=== PATIENT | male | born 1950 | race Caucasian/White ===

== ENCOUNTER 2016-10-02 16:04 | Emergency (ER) | payer MEDICARE, OTHER ==
[~2016-10-02] VITALS: Ht 177.8 cm; Wt 105.0 kg
[2016-10-02 16:09] VITALS: BP 205/105
[2016-10-02] MEDS ORDERED: SODIUM CHLORIDE FLUSH 10ML SYR IVF ONE (16:30)
[2016-10-02] MEDS ORDERED: ASPIRIN 81 MG TABLET CHEW PO ONE (16:30)
[2016-10-02 16:50] LABS: BLOOD UREA NITROGEN 79 mg/dL (7-18)
[2016-10-02 16:55] LABS: IS PT STATUS REG ER OR PRE ER? YES
== END 2016-10-02 17:29 | disposition home or self-care (01) ==
LOC: ED 17:23
DX: S06.5X0A Traumatic subdural hemorrhage without loss of consciousness, initial encounter (principal); I10 Essential (primary) hypertension; W10.9XXA Fall (on) (from) unspecified stairs and steps, initial encounter; Y93.89 Activity, other specified; Y92.009 Unspecified place in unspecified non-institutional (private) residence as the place of occurrence of the external cause; Y99.9 Unspecified external cause status
CPT/HCPCS: 36415; 71010; 80048; 81003; 82040; 84484; 85025; 93005; 99285

== ENCOUNTER → 2017-04-04 | Outpatient (CLI) | payer MEDICARE, OTHER | END | disposition home or self-care (01) | LOC: CFH 15:14 → EDSTATUS 15:30 | PROVIDERS: ATTEND Internal Medicine Nephrology | DX: N13.30 Unspecified hydronephrosis (principal); N32.3 Diverticulum of bladder; N18.9 Chronic kidney disease, unspecified | CPT/HCPCS: 76770 ==

== ENCOUNTER 2017-09-17 10:09 | Emergency (ER) | payer MEDICARE, OTHER ==
[~2017-09-17] VITALS: Ht 177.8 cm; Wt 96.0 kg
[2017-09-17 12:34] LABS: ALBUMIN 3.6 g/dL (3.4-5.0); ANION GAP 12 mmol/L (5-15); CALCIUM 9.1 mg/dL (8.5-10.1); CHLORIDE 105 mmol/L (98-107); CREATININE 5.38 mg/dL (0.7-1.3)
[2017-09-17] MEDS ORDERED: LIDOCAINE 2%, 10ML ONE ×2 (14:05→14:06)
[2017-09-17] MEDS ORDERED: MIDAZOLAM 1 MG/ML, 5ML ONE (14:25)
[2017-09-17] MEDS ORDERED: FENTANYL PF 100 MCG/2ML ONE (14:25)
[2017-09-17 17:49] VITALS: BP 114/60
== END 2017-09-17 18:03 | disposition home or self-care (01) ==
LOC: ED 11:40
DX: I12.9 Hypertensive chronic kidney disease with stage 1 through stage 4 chronic kidney disease, or unspecified chronic kidney disease (principal); N18.3 Chronic kidney disease, stage 3 (moderate); Z85.46 Personal history of malignant neoplasm of prostate
CPT/HCPCS: 36415; 51702; 75989; 80048; 82040; 99156; 99157; 99285; C1725; C1769; J2250; J3010; J3490

== ENCOUNTER 2018-01-05 09:45 | Day surgery (SDC) | payer BC, MEDICARE, OTHER ==
[~2018-01-05] VITALS: Ht 177.8 cm; Wt 101.7 kg
[2018-01-05] MEDS ORDERED: HEPARIN 1,000 UNITS/ML, 10ML ONE (10:22)
[2018-01-05] MEDS ORDERED: BUPIVACAINE/PF 0.5% ONE (10:22)
[2018-01-05] MEDS ORDERED: PROTAMINE SULFATE 10 MG/ML, 5ML ONE (10:22)
[2018-01-05] MEDS ORDERED: LACTATED RINGERS 1,000 ML IV SCH (10:59)
[2018-01-05] MEDS ORDERED: LEUP45SY IM (11:07)
[2018-01-05] MEDS ORDERED: TIMO5DRO28 EACHEYE (11:07)
[2018-01-05] MEDS ORDERED: AMLO10TA2 PO (11:07)
[2018-01-05] MEDS ORDERED: LOSA25TA5 PO (11:07)
[2018-01-05 11:20] VITALS: BP 143/82
[2018-01-05] MEDS ORDERED: FENTANYL PF 100 MCG/2ML ONE (12:41)
[2018-01-05] MEDS ORDERED: EPHEDRINE 50 MG/ML, 1ML IM PRN (13:00)
[2018-01-05] MEDS ORDERED: DIPHENHYDRAMINE 50 MG/ML, 1ML IVPush PRN (13:00)
[2018-01-05] MEDS ORDERED: OXYcodone 5 MG/5 ML ORAL.SOL UDC PO PRN (13:00)
[2018-01-05] MEDS ORDERED: EPHEDRINE 50 MG/ML, 1ML IVPush PRN (13:00)
[2018-01-05] MEDS ORDERED: ACETAMINOPHEN 325 MG TABLET PO PRN (13:00)
[2018-01-05] MEDS ORDERED: ONDANSETRON ODT 8 MG PO PRN (13:00)
[2018-01-05] MEDS ORDERED: FENTANYL PF 100 MCG/2ML IV PRN (13:00)
[2018-01-05] MEDS ORDERED: PROMETHAZINE 25 MG SUPP PR PRN (13:00)
[2018-01-05] MEDS ORDERED: LABETALOL 5MG/ML, 20ML IV PRN (13:00)
[2018-01-05] MEDS ORDERED: PROMETHAZINE 25 MG/ML, 1ML IV PRN (13:00)
[2018-01-05] MEDS ORDERED: PROMETHAZINE 12.5 MG SUPP PR PRN (13:00)
[2018-01-05] MEDS ORDERED: MIDAZOLAM 1 MG/ML, 2ML IV PRN (13:00)
[2018-01-05] MEDS ORDERED: MORPHINE SULFATE 4 MG/ML, 1ML IVPush PRN (13:00)
[2018-01-05] MEDS ORDERED: PROPOFOL 10 MG/ML, 20ML ONE ×2 (13:20)
[2018-01-05] MEDS ORDERED: DEXAMETHASONE 4 MG/ML, 1ML ONE (13:20)
[2018-01-05] MEDS ORDERED: CEFAZOLIN 1,000 MG ONE ×2 (13:20)
[2018-01-05] MEDS ORDERED: ONDANSETRON 2MG/ML, 2ML ONE (13:20)
[2018-01-05] MEDS ORDERED: OXYcodone 5 MG/5 ML ORAL.SOL UDC ONE (14:14)
== END 2018-01-05 17:15 | disposition home or self-care (01) ==
LOC: OUT 09:45
PROVIDERS: ATTEND Surgery Vascular Surgery
DX: I12.0 Hypertensive chronic kidney disease with stage 5 chronic kidney disease or end stage renal disease (principal); N18.6 End stage renal disease; Z85.46 Personal history of malignant neoplasm of prostate; Z98.890 Other specified postprocedural states; Z79.899 Other long term (current) drug therapy
CPT/HCPCS: 36415; 36821; 80047; 93005; J0690; J1100; J1644; J2405; J2704; J2720; J3010; J7120; J3490

== ENCOUNTER 2018-03-16 07:12 | Day surgery (SDC) | payer BC, MEDICARE, OTHER ==
[~2018-03-16] VITALS: Ht 177.8 cm; Wt 107.0 kg
[~2018-03-16 07:12] MED LIST: AMLO10TA6 PO; BUPIVACAINE/PF 0.5% ONE; HEPARIN 1,000 UNITS/ML, 10ML ONE; HEPARIN 5,000 UNITS/ML, 1ML ONE; LEUP45SY IM; LOSA25TA6 PO; THROMBIN 20,000 UNIT VIAL TP ONE; THROMBIN 5,000 UNIT VIAL TP ONE; TIMO5DRO28 EACHEYE
[2018-03-16] MEDS ORDERED: SODIUM CHLORIDE 0.9% 1,000 ML IV SCH (07:40)
[2018-03-16] MEDS ORDERED: MIDAZOLAM 1 MG/ML, 2ML ONE (07:50)
[2018-03-16] MEDS ORDERED: PROPOFOL 10 MG/ML, 20ML ONE (07:50)
[2018-03-16] MEDS ORDERED: FENTANYL PF 250 MCG/5ML ONE (07:50)
[2018-03-16] MEDS ORDERED: GLYCOPYRROLATE 0.4 MG/2 ML, 2ML ONE (07:51)
[2018-03-16] MEDS ORDERED: NEOSTIGMINE 1 MG/ML, 10ML ONE (07:51)
[2018-03-16] MEDS ORDERED: ROCURONIUM 10MG/ML,5ML ONE (07:51)
[2018-03-16] MEDS ORDERED: CEFAZOLIN 1,000 MG ONE ×2 (07:52)
[2018-03-16] MEDS ORDERED: SODIUM CHLORIDE 0.9% PF 10ML ONE (07:52)
[2018-03-16 08:04] VITALS: BP 144/77
[2018-03-16] MEDS ORDERED: FURO20TA3 PO (08:11)
[2018-03-16] MEDS ORDERED: FENTANYL PF 100 MCG/2ML IV PRN (09:30)
[2018-03-16] MEDS ORDERED: LABETALOL 5MG/ML, 20ML IV PRN (09:30)
[2018-03-16] MEDS ORDERED: PROMETHAZINE 25 MG/ML, 1ML IV PRN (09:30)
[2018-03-16] MEDS ORDERED: PROMETHAZINE 25 MG/ML, 1ML IM PRN ×2 (09:30)
[2018-03-16] MEDS ORDERED: ONDANSETRON ODT 8 MG PO PRN (09:30)
[2018-03-16] MEDS ORDERED: HYDROmorphone 1 MG/ML, 1ML IV PRN (09:30)
[2018-03-16] MEDS ORDERED: hydrALAzine 20 MG/ML, 1ML IV PRN (09:30)
[2018-03-16] MEDS ORDERED: ONDANSETRON 2MG/ML, 2ML IV PRN (09:30)
[2018-03-16] MEDS ORDERED: BUPIVACAINE/PF-EPI 0.5% 1:200K ONE (10:23)
[2018-03-16] MEDS ORDERED: OXYcodone 5 MG/5 ML ORAL.SOL UDC ONE ×2 (11:51→12:17)
[2018-03-16] MEDS: OXYcodone 5 MG/5 ML ORAL.SOL UDC PO PRN ×2 (11:52→12:18)
[2018-03-16] MEDS ORDERED: hydrALAzine 20 MG/ML, 1ML ONE (12:06)
[2018-03-16] MEDS ORDERED: FENTANYL PF 100 MCG/2ML ONE (12:13)
== END 2018-03-16 14:10 | disposition home or self-care (01) ==
LOC: OUT 07:12
PROVIDERS: ATTEND Surgery Vascular Surgery
DX: I12.0 Hypertensive chronic kidney disease with stage 5 chronic kidney disease or end stage renal disease (principal); N18.6 End stage renal disease; Z98.890 Other specified postprocedural states; Z85.46 Personal history of malignant neoplasm of prostate
CPT/HCPCS: 36415; 36821; 49421; 80047; C1750; J0360; J0690; J1644; J2250; J2704; J2710; J3010; J3490

== ENCOUNTER 2018-10-09 16:03 | Emergency (ER) | payer BC, MEDICARE, OTHER ==
[~2018-10-09] VITALS: Ht 177.8 cm; Wt 116.3 kg
[~2018-10-09 16:03] MED LIST changes: -AMLO10TA6 PO; +AMLO10TA8 PO; -BUPIVACAINE/PF 0.5% ONE; +FURO20TA3 PO; -HEPARIN 1,000 UNITS/ML, 10ML ONE; -HEPARIN 5,000 UNITS/ML, 1ML ONE; +LOSA25TA25 PO; -LOSA25TA6 PO; -THROMBIN 20,000 UNIT VIAL TP ONE; -THROMBIN 5,000 UNIT VIAL TP ONE
--- NOTE | 2018-10-09 16:20 | NUR ---
patient arrives to the er with a ring stuck on his right ring finger. the finger distally is pink/swollen. he has pain to right ring finger. we are attempting to remove ring. patient has some pain to right ring finger.
--- NOTE | 2018-10-09 16:40 | NUR ---
ring successfully cut off from finger. patient feels relief. awaiting tests and xray
[2018-10-09 16:44] LABS: BASOPHILS # (AUTO) 0.04 x10^3/uL (0-0.1); BASOPHILS % (AUTO) 1 % (0-1); EOSINOPHILS # (AUTO) 0.32 x10^3/uL (0-0.4); EOSINOPHILS % (AUTO) 6 % (1-7); LYMPHOCYTES # (AUTO) 0.72 x10^3/uL (1-3.4); LYMPHOCYTES % (AUTO) 13 % (22-44); MD NO; MEAN CORPUSCULAR HEMOGLOBIN 29.8 pg (27.5-34.5); MEAN CORPUSCULAR HGB CONC 32.9 g/dL (33.2-36.2); MEAN CORPUSCULAR VOLUME 90.8 fL (81-97); MONOCYTES # (AUTO) 0.52 x10^3/uL (0.2-0.8); MONOCYTES % (AUTO) 9 % (2-9); NEUTROPHILS # (AUTO) 3.99 x10^3/uL (1.8-6.8); NEUTROPHILS % (AUTO) 72 % (42-75); PLATELET COUNT 232 x10^3/uL (130-400); RED BLOOD COUNT 3.46 x10^6/uL (4.38-5.82); RED CELL DISTRIBUTION WIDTH 13.9 % (9.4-14.8)
[2018-10-09 17:24] LABS: HCT (SEDRATE) 31.4 % (39.2-51.8)
--- NOTE | 2018-10-09 18:09 | NUR ---
patient circulation in finger improved, cap refill 3 seconds. redness going away, states pain improving.
[2018-10-09] MEDS ORDERED: BACITRACIN ZINC OINT 500U/GM, 0.9 GM ONE (18:12)
--- NOTE | 2018-10-09 18:21 | NUR ---
put bacitracin on wound and instructions regarding follow up care and wound care given. patient shows understanding.
[2018-10-09 18:22] VITALS: BP 143/78
== END 2018-10-09 18:27 | disposition home or self-care (01) ==
LOC: ED 16:44
DX: S60.414A Abrasion of right ring finger, initial encounter (principal); I10 Essential (primary) hypertension; Z85.46 Personal history of malignant neoplasm of prostate; X58.XXXA Exposure to other specified factors, initial encounter; Y93.89 Activity, other specified; Y92.009 Unspecified place in unspecified non-institutional (private) residence as the place of occurrence of the external cause; Y99.8 Other external cause status
CPT/HCPCS: 36415; 85025; 85651; 86140; 99284

== ENCOUNTER 2018-10-11 10:37 | Emergency (ER) | payer BC, MEDICARE, OTHER ==
[2018-10-11 10:39] VITALS: BP 155/80
== END 2018-10-11 11:08 | disposition home or self-care (01) ==
LOC: ED 10:50
DX: L03.011 Cellulitis of right finger (principal); Z85.46 Personal history of malignant neoplasm of prostate; I10 Essential (primary) hypertension
CPT/HCPCS: 99281

== ENCOUNTER → 2020-05-18 | Outpatient (CLI) | payer MEDICARE, OTHER ==
[~2020-05-18] MED LIST changes: +AMLO-211 PO; -AMLO10TA8 PO
== END | disposition home or self-care (01) ==
LOC: STAR 13:55
PROVIDERS: ATTEND Anesthesiology
DX: Z20.828 Contact with and (suspected) exposure to other viral communicable diseases (principal)
CPT/HCPCS: 87635

== ENCOUNTER 2020-05-22 10:27 | Day surgery (SDC) | payer MEDICARE, OTHER ==
[~2020-05-22] VITALS: Ht 177.8 cm; Wt 130.4 kg
[2020-05-22] MEDS ORDERED: CHLORHEXIDINE 15 ML UDC ONE (11:11)
[2020-05-22] MEDS ORDERED: PLEASE ENTER HEIGHT AND WEIGHT MC SCH (11:30)
[2020-05-22] MEDS ORDERED: CHLORHEXIDINE 15 ML UDC MM ONE (11:30)
[2020-05-22] MEDS ORDERED: LACTATED RINGERS 1,000 ML IV SCH (11:30)
[2020-05-22 11:39] VITALS: BP 160/82
[2020-05-22 11:43] LABS: BASOPHILS % (AUTO) 1 % (0-1); EOSINOPHILS % (AUTO) 6 % (1-7); LYMPHOCYTES % (AUTO) 12 % (22-44); MEAN CORPUSCULAR HEMOGLOBIN 31.4 pg (27.5-34.5); MEAN CORPUSCULAR HGB CONC 33.8 g/dL (33.2-36.2); MEAN PLATELET VOLUME 8.2 fL (7.4-10.4); MONOCYTES % (AUTO) 7 % (2-9); NEUTROPHILS % (AUTO) 74 % (42-75); PLATELET COUNT 213 x10^3/uL (130-400); RED BLOOD COUNT 4.59 x10^6/uL (4.38-5.82); RED CELL DISTRIBUTION WIDTH 15.4 % (9.4-14.8)
[2020-05-22 11:48] LABS: MD NO
[2020-05-22 11:53] LABS: ANION GAP 8 mmol/L (5-15); CALCIUM 9.8 mg/dL (8.5-10.1); CHLORIDE 101 mmol/L (98-107); CREATININE 4.54 mg/dL (0.7-1.3)
[2020-05-22] MEDS ORDERED: HEPARIN 1,000 UNITS/ML, 10ML ONE (13:53)
[2020-05-22] MEDS ORDERED: LIDOCAINE/PF 1%, 30ML ONE (13:53)
[2020-05-22] MEDS ORDERED: PAPAVERINE 30 MG/ML, 2ML ONE (13:53)
[2020-05-22] MEDS ORDERED: BUPIVACAINE/PF 0.25% ONE ×2 (13:53→16:40)
[2020-05-22] MEDS ORDERED: FENTANYL PF 250 MCG/5ML ONE (13:59)
[2020-05-22] MEDS ORDERED: THROMBIN 5,000 UNIT VIAL TP ONE (14:02)
[2020-05-22] MEDS ORDERED: SUCCINYLCHOLINE 20 MG/ML, 10ML ONE (14:58)
[2020-05-22] MEDS ORDERED: GLYCOPYRROLATE 0.2MG/1ML, 5ML ONE (14:58)
[2020-05-22] MEDS ORDERED: ROCURONIUM 10 MG/ML,10ML ONE (14:58)
[2020-05-22] MEDS ORDERED: CEFAZOLIN 1,000 MG ONE (14:58)
[2020-05-22] MEDS ORDERED: PROPOFOL 10 MG/ML, 20ML ONE (14:58)
[2020-05-22] MEDS ORDERED: ONDANSETRON 2MG/ML, 2ML ONE (14:58)
[2020-05-22] MEDS ORDERED: NEOSTIGMINE 1 MG/ML, 10ML ONE (14:58)
[2020-05-22] MEDS ORDERED: EPHEDRINE 50 MG/ML, 1ML IVPush PRN (16:00)
[2020-05-22] MEDS ORDERED: OXYcodone 5 MG/5 ML ORAL.SOL UDC PO PRN (16:00)
[2020-05-22] MEDS ORDERED: HYDROmorphone 1 MG/ML, 1ML INJ IVPush PRN (16:00)
[2020-05-22] MEDS ORDERED: LABETALOL 5MG/ML, 20ML IV PRN (16:00)
[2020-05-22] MEDS ORDERED: hydrALAzine 20 MG/ML, 1ML IV PRN (16:00)
[2020-05-22] MEDS ORDERED: ONDANSETRON 2MG/ML, 2ML IVPush PRN (16:00)
[2020-05-22] MEDS ORDERED: ACETAMINOPHEN 325 MG TABLET PO PRN (16:00)
[2020-05-22] MEDS ORDERED: HALOPERIDOL 5 MG/ML IV PRN (16:00)
[2020-05-22] MEDS ORDERED: FENTANYL PF 100 MCG/2ML IV PRN (16:00)
[2020-05-22] MEDS ORDERED: OXYcodone 5 MG/5 ML ORAL.SOL UDC ONE (16:55)
[2020-05-22] MEDS ORDERED: FENTANYL PF 100 MCG/2ML ONE (17:08)
[2020-05-22] MEDS ORDERED: METHOCARBAMOL 1,000 MG in DEXTROSE 5% 100 ML IV PRN (17:30)
== END 2020-05-22 18:45 | disposition home or self-care (01) ==
LOC: OUT 10:27
PROVIDERS: ATTEND Surgery
DX: T82.898A Other specified complication of vascular prosthetic devices, implants and grafts, initial encounter (principal); I12.0 Hypertensive chronic kidney disease with stage 5 chronic kidney disease or end stage renal disease; E11.22 Type 2 diabetes mellitus with diabetic chronic kidney disease; N18.5 Chronic kidney disease, stage 5; D64.9 Anemia, unspecified; Z88.2 Allergy status to sulfonamides; Y83.8 Other surgical procedures as the cause of abnormal reaction of the patient, or of later complication, without mention of misadventure at the time of the procedure; Z79.899 Other long term (current) drug therapy; Z85.46 Personal history of malignant neoplasm of prostate; Z98.890 Other specified postprocedural states
CPT/HCPCS: 36415; 36818; 80048; 85025; 93005; J0330; J0690; J1644; J2405; J2704; J2710; J3010; J7120; J2440